=== PATIENT | female | born 1975 | race Caucasian/White ===

== ENCOUNTER → 2024-04-21 09:47 | Outpatient (BNVA) | payer OTHER, SELFPAY | PROVIDERS: PCP Family Medicine; Visit Provider Family Medicine | DX: Z00.00 Encounter for general adult medical examination without abnormal findings (principal); F41.8 Other specified anxiety disorders; J45.909 Unspecified asthma, uncomplicated; G47.9 Sleep disorder, unspecified; E78.5 Hyperlipidemia, unspecified; Z85.3 Personal history of malignant neoplasm of breast | CPT/HCPCS: 96127 ==

== ENCOUNTER 2024-05-10 09:11 | Outpatient (REF) | payer OTHER, SELFPAY ==
--- OUTSIDE RECORDS SUMMARY | 2024-05-10 09:51 | XMS_ITS | Clinical Summary ---
Author Organization [facility] Address [address] [place] [address] Care Team Providers Care Line Patroller Name Role Phone Nely Mccloud MD Primary Care Provider [phone] [phone] Allergies Active Allergy Reactions Criticality Noted Date Comments Clarithromycin 07/29/2023 Neomycin 07/29/2023 Medications Medication Sig Dispensed Refills Start Date End Date Status albuterol 108 (90 Base) MCG/ACT inhaler INHALE 2 PUFFS INTO THE LUNGS 4 TIMES DAILY NEEDED FOR COUGH, WHEEZING OR SHORTNESS OF BREATH. 0 07/07/2023 Active Arnuity Ellipta 100 MCG/ACT AEPB TAKE 1 PUFF BY MOUTH EVERY DAY 0 04/21/2023 Active tamoxifen (NOLVADEX) 20 MG tablet Take 1 tablet (20 mg total) by mouth daily 90 tablet 0 10/28/2023 Active Active Problems Problem Noted Date Diagnosed Date Malignant neoplasm of overla pping sites of left breast in female, estrogen receptor positive 07/29/2023 Family History Medical History Relation Name Comments Cancer Mother BREAST Relation Name Status Comments Mother Social History Tobacco Use Types Packs/Day Years Used Date Smoking Tobacco: Former Cigarettes Q uit: 10/22/2011 Smokeless Tobacco: Never Alcohol Use Standard Drinks/Week Comments Yes 0 (1 standard drink = 0.6 oz pur e alcohol) SOCIALLY Sex and Gender Information Value Date Recorded Sex Assigned at Not on file Gender Identity Not on file Sexual Orientation Not on file Job Start Date Occupation Industry Not on file Not on file Not on file Last Filed Vital Signs Vital Sign Reading Time Taken Comments Blood Pressure 128/70 10/28/2023 9:08 AM EDT Pulse 67 10/28/2023 9:08 AM EDT Temperature 36.5 ??C (97.7 ??F) 10/28/2023 9:08 AM ED T Respiratory Rate - - Oxygen Saturation 100% 10/28/2023 9:08 AM EDT Inhaled Oxygen Concentration - - Weight 78.6 kg (173 lb 3.2 oz) 10/28/2023 9:08 A M EDT Height - - Body Mass Index - - Plan of Treatment Health Maintenance Due Date Last Done Comments Hepatitis B Vaccines (1 of 3 - 3-dose series) 1975 Hepatitis C Screening 1975 Pneumococcal Vaccine (1 of 2 - PCV) 12/21/1981 Depression Screening 1987 Preventative Health Evaluation 12/21/1993 DTap / Tdap / Td (1 - Tdap) 12/21/1994 Cervical Cancer Screening (Pap Smear) 12/21/1996 Colon Cancer Screening (Colonoscopy) 12/21/2020 COVID-19 Vaccine (2023-2 5 season) 2023 03/21/2021, 08/06/2020, 07/16/2020 Influenza Vaccine (#1) 2023 RSV Ped < 20 months Aged Out No longe r eligible based on patient's age to complete this topic Care Teams Line Patroller Relationship Specialty Start Date End Date Nely Mccloud MD [address] [place] [id number] PCP - General Internal Medicine 07/29/23
--- OUTSIDE RECORDS SUMMARY | 2024-05-10 09:51 | XMS_ITS | Encounter Summary ---
Author Organization [facility] Address [address] [place] [address] Care Team Providers Care Cabinet Abrasive Sandblaster Name Role Phone Nely Mccloud MD Primary Care Provider [phone] [phone] Reason for Visit * Reason Onset Date Comments Referral 04/13/2024 Encounter Details Date Type Department Care Team (Late st Contact Info) Description 04/13/2024 Telephone [facility] Hematology Oncology [address] [place] [address] Alem Vargas MD [address] [place] [phone] Referral Social History Tobacco Use Types Packs/Day Years Used Date Smoking Tobacco: Former Cigarettes Q uit: 10/22/2011 Smokeless Tobacco: Never Alcohol Use Standard Drinks/Week Comments Yes 0 (1 standard drink = 0.6 oz pur e alcohol) Comments Unknown Sex and Gender Information Value Date Recorded Sex Assigned at Not on file Legal Sex Female 3:51 PM EST Gender Identity Not on file Sexual Orientation Not on file documented as of this encounter Progress Notes * Iva Kline - 04/13/2024 9:42 AM EST APPT WITH [facility]. 04/20/24 10AM. PATIENT NOTIFIED. documented in this encounter Plan of Treatment Upcoming Encounters Date Type Department Care Team (Late st Contact Info) Description 06/09/2024 1:30 PM EDT Appointment Radiology Department - [address] [address] 06/14/2024 8:20 AM EDT [facility] [place] [address] [facility] [address] [place] [phone] Oswaldo Treviño MD 271 [facility] [address] [place] [address] 09/30/2024 9:30 AM EDT Office Visit [facility] Hematology Oncology [address] [place] [phone] Shashi-Alem Ramírez MD [address] [place] [phone] documented as of this encounter Visit Diagnoses Not on filedocumented in this encounter Care Teams Cabinet Abrasive Sandblaster Relationship Specialty Start Date End Date Nely Mccloud MD [address] [place] [id number] PCP - General 04/29/22 04/13/24 documented as of this encounter
--- OUTSIDE RECORDS SUMMARY | 2024-05-10 09:51 | XMS_ITS | Clinical Summary ---
Author Organization [facility] Address [address] [place] [address] Phone Care Team Providers Care Jewel Cupping Machine Operator Name Role Phone Unavailable Primary Care Provider Unavailabl e Allergies Active Allergy Reactions Criticality Noted Date Comments Clarithromycin Nausea And Vomiting 04/28/2018 Neomycin 04/28/2018 Other Reaction(s): Rash/Dermatitis Makes her skin blister Medications albuterol HFA (PROAIR HFA ; PROVENTIL HFA ; VENTOLIN HFA) 90 mcg/actuation inhaler Inhale 2 Puffs into the lungs 4 times daily as needed for Cough, Wheezing or Shortness of Breath. Active tamoxifen (NOLVADEX) 20 mg chemo tablet Take 1 tablet (20 mg total) by mouth 1 (one) time each day 30 tablet 3 01/25/20 24 Active Arnuity Ellipta 100 mcg/actuation blister with device inhaler INHALE 1 PUFF BY MOUTH EVERY DAY 90 each 04/14/19 25 Active fluticasone furoate (Arnuity Ellipta) 100 mcg/actuation blister with device inhaler Inhale 1 puff by mouth 1 (one) time each day. 04/21/19 24 025 Discontinued Active Problems Problem Noted Date Diagnosed Date Malignant neoplasm of lower- outer quadrant of left breast of female, estrogen receptor positive 03/30/2024 Mild intermittent asthma without complication Lumbar disc disease with radiculopathy Asthma 04/28/2018 Overweight (BMI 25.0-29.9) 04/28/2018 Encounters Date Type Department Care Team Description 04/13/2024 Telephone [facility] Hematology Oncology [address] [place] [address] Alem Vargas MD Referral 04/01/2024 11:30 AM EST Office Visit [facility] Hematology Oncology [address] [place] [address] Alem Vargas MD Malignant neoplasm of lower-outer quadrant of left breast of female, estrogen receptor positive (CMS/HCC) (Primary Dx); Dysplastic nevus 03/28/2024 Telephone [facility] Hematology Oncology [address] [place] [address] Alem Vargas MD from Last 3 Months Surgical History Surgery Date Site/Laterality Comments TUBAL LIGATION PROCEDURE:TUBAL LIGATION;COMMENT:REVERSED 2011 Medical History Medical History Date Comments Breast cancer (CMS/HCC) DX:Breas t cancer (HCC) Asthma DX:Asthma Family History Medical History Relation Name Comments Cancer Mother BREAST Relation Name Status Comments Mother Social History Tobacco Use Types Packs/Day Years Used Date Smoking Tobacco: Former Cigarettes Q uit: 10/22/2011 Smokeless Tobacco: Never Tobacco Cessation:Counseling Given: Not Answered Alcohol Use Standard Drinks/Week Comments Yes 0 (1 standard drink = 0.6 oz pur e alcohol) Comments Unknown Sex and Gender Information Value Date Recorded Sex Assigned at Not on file Legal Sex Female 3:51 PM EST Gender Identity Not on file Sexual Orientation Not on file Obstetrics History Last Filed Vital Signs Vital Sign Reading Time Taken Comments Blood Pressure 128/73 04/01/2024 11:36 AM EST Pulse 68 04/01/2024 11:36 AM EST Temperature 37 ??C (98.6 ??F) 04/01/2024 11: 36 AM EST Respiratory Rate - - Oxygen Saturation 100% 04/01/2024 11: 36 AM EST Inhaled Oxygen Concentration - - Weight 76.6 kg (168 lb 12.8 oz) 025 11:36 AM EST Height 162.6 cm (5' 4 ) 01/15/2023 1:56 PM EDT Body Mass Index 28.97 01/15/2023 1:56 PM EDT Plan of Treatment Upcoming Encounters Date Type Department Care Team (Late st Contact Info) Description 06/09/2024 1:30 PM EDT Appointment Radiology Department - [address] [address] 06/14/2024 8:20 AM EDT Office Visit [facility] [place] [facility] [place] [address] [facility] [address] [place] [phone] Oswaldo Treviño MD 271 [facility] [address] [place], [place] [phone] 09/30/2024 9:30 AM EDT Office Visit [facility] Hematology Oncology [address] [place] [address] Shashi-Alem Ramírez MD [address] [place] [address] Health Maintenance Due Date Last Done Comments DTaP,Tdap,and Td Vaccines (1 - Tdap) 12/21/1994 Hepatitis B Vaccines (1 of 3 - 19+ 3-dose series) 12/21/1994 Pneumococcal Vaccine: Pediatrics (0 to 5 Years) and At-Risk Patients (6 to 64 Years) (1 of 2 - PCV) 12/21/1994 Colorectal Cancer Screening: Colonoscopy 03/01/2022 Depression Screening 03/01/2022 HIV Screening 03/01/2022 Hepatitis C Screening 03/01/2022 Social Influencers of Health Screening 03/01/2022 COVID-19 Vaccine ( season) 2023 04/11/2022, 03/21/2021, 08/06/2020, Additional history exists Influenza Vaccine (#1) 2023 Breast Cancer Screening 09/02/2025 09/03/19 24, 09/03/2023, 06/01/2023, Additional history exists Cervical Cancer Screening: HPV 06/10/2026 06/10/2021 Cholesterol Screening (Lipid Panel) 07/05/2027 07/04/2022 HIB Vaccines Aged Out No longer eligi ble based on patient's age to complete this topic HPV Vaccines Aged Out No longer eligi ble based on patient's age to complete this topic Hepatitis A Vaccines Aged Out No long er eligible based on patient's age to complete this topic IPV Vaccines Aged Out No longer eligi ble based on patient's age to complete this topic MMR Vaccines Aged Out No longer eligi ble based on patient's age to complete this topic Meningococcal ACWY Vaccine Aged Out N o longer eligible based on patient's age to complete this topic Meningococcal B Vacine Aged Out No lo nger eligible based on patient's age to complete this topic RSV Immunization Patients Under 20 months Aged Out No longer eligible based on patient's age to complete this topic Varicella Vaccines Aged Out No longer eligible based on patient's age to complete this topic Procedures Procedure Name Priority Date/Time Associated Diagnosis Comments DX MAMMO INCL CAD UNI Routine 09/03/2023 2:31 PM EDT Other abnormal and inconclusive findings on diagnostic imaging of breast LIPID PANEL Routine 07/04/2022 HM HPV Routine 06/10/2021 from Last 3 Months or Most Recently Relevant to Health Maintenance Results * DX MAMMO INCL CAD UNI (09/03/2023 2:31 PM EDT) Anatomical Region Laterality Modality Mammography 09/02/2023 12:1 9 PM EDT Narrative 09/14/2023 7:39 PM EDT PROCEDURE: MRI guided left breast biopsy HISTORY: Personal history of left breast cancer status post partial mastectomy and left axillary sentinel node biopsy. Pathology demonstrated multiple foci of invasive ductal carcinoma and extensive DCIS. Prior MRI demonstrated area of enhancement spanning from 12:00 to 2:00 ??and both areas were recommended for biopsy as there was an original plan for reexcision. Today, biopsy of curvilinear nonmass enhancement situated more medially was performed. COMPARISON: MRI breast from 08/18/2023 Technique: The time-out, which included patient's full name, date of , description of the expected procedure and procedure site, was performed immediately before the procedure to confirm patient's identity. Informed consent was obtained. Using a dedicated breast coil with the patient in the prone position, axial fat-suppressed T1-weighted images were obtained through the breast. Axial images were then obtained after the administration of 20 cc of Dotarem intravenous contrast at 15 seconds and 90 seconds. Subtractions of the axial T1 sequences were performed. FINDINGS: MRI guided biopsy was performed for the concerning 12:00 area of nonmass enhancement which was described in the previous report. A lateral to medial approach was used. The skin was cleaned with Betadine and alcohol. Cutaneous and deeper subcutaneous anesthesia was achieved using 1% lidocaine and 1% lidocaine with epinephrine, respectively. A 3 mm incision was made using a scalpel. An 9 gauge vacuum assisted biopsy needle was inserted into the targeted area and its accuracy was confirmed with MRI images. Four core biopsy specimens were obtained. Biopsy marker clip was deployed at the biopsy site. Following the procedure, the biopsy site was compressed and cleaned. Steri- Strips and sterile gauze were applied and the patient was given post-biopsy instructions. The patient tolerated the procedure well and left the department in good condition. Postbiopsy mammogram demonstrates the clip. The obtained core specimens were sent for pathologic analysis. IMPRESSION: IMPRESSION: Successful MRI guided biopsy of the more medial area of nonmass enhancement at 12:00 containing type III kinetics. Biopsy markers were not available as they were significantly back ordered. Multiple surrounding institutions were called to obtain markers but unable to obtain additional marker. Patient will need to return for the most anterior aspect biopsy recommended on prior examination depending on pathology results and depending on whether reexcision is still the surgical plan. The plan to do only one biopsy was discussed with Dr. Treviño prior to beginning the biopsy SURGICAL PATHOLOGY REPORT DIAGNOSIS: DCIS Pathology findings are concordant with imaging findings. BIRADS category 6 - Known Biopsy-Proven Malignancy RECOMMENDATION: Consultation with breast surgeon is recommended. Findings were discussed with Dr. Treviño on 09/10/2023 at 10:25 AM, the plan at time of discussion was mastectomy, therefore an additional MRI biopsy was not needed. Patient aware of results. Procedure Note Edith Ivan MD - 01/06/2024 PROCEDURE: MRI guided left breast biopsy HISTORY: Personal history of left breast cancer status post partialmastectomy and left axillary sentinel node biopsy. Pathology demonstrated multiple foci ofinvasive ductal carcinoma and extensive DCIS. Prior MRI demonstrated area of enhancementspanning from 12:00 to 2:00 and both areas were recommended for biopsy as there was an originalplan for reexcision. Today, biopsy of curvilinear nonmass enhancement situated more mediallywas performed. COMPARISON: MRI breast from 08/18/2023 Technique: The time-out, which included patient's full name, date of ,description of the expected procedure and procedure site, was performed immediately before theprocedure to confirm patient's identity. Informed consent was obtained. Using a dedicated breast coil with the patient in the prone position,axial fat-suppressed T1-weighted images were obtained through the breast. Axial images werethen obtained after the administration of 20 cc of Dotarem intravenous contrast at 15 seconds and90 seconds. Subtractions of the axial T1 sequences were performed. FINDINGS: MRI guided biopsy was performed for the concerning 12:00 area of nonmassenhancement which was described in the previous report. A lateral to medial approach was used.The skin was cleaned with Betadine and alcohol. Cutaneous and deeper subcutaneous anesthesiawas achieved using 1% lidocaine and 1% lidocaine with epinephrine, respectively. A 3 mm incisionwas made using a scalpel. An 9 gauge vacuum assisted biopsy needle was inserted into thetargeted area and its accuracy was confirmed with MRI images. Four core biopsy specimens wereobtained. Biopsy marker clip was deployed at the biopsy site. Following the procedure, the biopsy site was compressed and cleaned.Steri-Strips and sterile gauze were applied and the patient was given post-biopsy instructions. The patient tolerated the procedure well and left the department in goodcondition. Postbiopsy mammogram demonstrates the clip. The obtained core specimens were sent for pathologic analysis. IMPRESSION: IMPRESSION: Successful MRI guided biopsy of the more medial area of nonmassenhancement at 12:00 containing type III kinetics. Biopsy markers were not available as they were significantly back ordered.Multiple surrounding institutions were called to obtain markers but unable to obtainadditional marker. Patient will need to return for the most anterior aspect biopsy recommended onprior examination depending on pathology results and depending on whether reexcision isstill the surgical plan. The plan to do only one biopsy was discussed with Dr. Treviño prior tobeginning the biopsy SURGICAL PATHOLOGY REPORT DIAGNOSIS: DCIS Pathology findings are concordant with imaging findings. BIRADS category 6 - Known Biopsy-Proven Malignancy RECOMMENDATION: Consultation with breast surgeon is recommended. Findings were discussed with Dr. Treviño on 09/10/2023 at 10:25 AM, the planat time of discussion was mastectomy, therefore an additional MRI biopsy was not needed.Patient aware of results. Oswaldo Treviño MD IMG BI PROCEDURES Final Result * (ABNORMAL) Lipid panel (07/04/2022) LDL/HDL Ratio 3 0 - 4 Triglycerides 58 0 - 150 mg/dL Cholesterol 206(A) 0 - 200 mg/dL HDL 69 >=40 mg/dL LDL Cholesterol 126(A) 0 - 100 mg/dL Blood Venous blood specimen / Unknown Historical Provider LAB BLOOD ORDERABLES Shantel l Result * Cervical Cancer Screening: HPV (06/10/2021) Pathologist [facility] Cervical Cancer Screening: HPV abstracted, negative Historical Provider HEALTH MAINTENANCE Final Result from Last 3 Months or Most Recently Relevant to Health Maintenance Insurance [facility] [place] [id number]
--- OUTSIDE RECORDS SUMMARY | 2024-05-10 09:51 | XMS_ITS | Encounter Summary ---
Author Organization [facility] Address [address] [place] [address] Care Team Providers Care Baton Twirler Name Role Phone Nely Mccloud MD Primary Care Provider [phone] [phone] Encounter Details Date Type Department Care Team Description 10/15/2023 Social Work [facility] Oncology Services [address] [place] [address] Tati Becerril, [facility] Social History Tobacco Use Types Packs/Day Years [...] file Not on file Not on file documented as of this encounter Plan of Treatment Not on file documented as of this encounter Visit Diagnoses Not on filedocumented in this encounter Care Teams Baton Twirler Relationship Specialty Start Date End Date Nely Mccloud MD [address] [place] [id number] PCP - General Internal Medicine 07/29/23 documented as of this encounter
--- OUTSIDE RECORDS SUMMARY | 2024-05-10 09:51 | XMS_ITS | Encounter Summary ---
Author Organization [facility] Address [address] [place] [address] Care Team Providers Care Property Maintenance Technician Name Role Phone Nely Mccloud MD Primary Care Provider [phone] Encounter Details Date Type Department Care Team Description 09/18/2023 Social Work [facility] Oncology Services [address] [place] [address] Tati Becerril, [facility] Social History Tobacco Use Types Packs/Day Years [...] on filedocumented in this encounter Care Teams Property Maintenance Technician Relationship Specialty Start Date End Date Nely Mccloud MD [address] [place] [id number] PCP - General Internal Medicine 07/29/23 documented as of this encounter
[2024-05-10 10:59] LABS: MANUAL DIFF FLAG NO
[2024-05-10 11:00] LABS: Appearance Urine Clear; Color Urine Yellow; Glucose Urine UA Negative (Negative); Leukocyte Esterase Urine Trace (Negative); Nitrite Urine Negative (Negative); PH 6.5 (5.0-9.0); Specific Gravity - Urine 1.015 (1.005-1.025); UMIC TRIGGER UA YES; Urine Blood Negative (Negative); Urine Ketones Negative (Negative); Urine Protein Negative (Neg-Trace)
[2024-05-10 11:05] LABS: Bacteria Urine None Seen (None Seen); Hyaline Casts Urine 0-2 /LPF (0-2); RBC Urine 0-2 /HPF (0-2); Squamous Epithelial Cell Urine 0-2 /HPF (0-2); WBC Urine 0-5 /HPF (0-5)
[2024-05-10 11:15] LABS: Basophils Percent Auto 0.3 % (0-2); Eosinophils Absolute Auto 0.2 X10*3/uL (0.0-0.4); Eosinophils Percent Auto 3.1 % (0-4); Hematocrit 38.3 % (37.0-47.0); Hemoglobin 12.4 g/dl (12.0-16.0); Imm Gran Abs Auto 0.01 X10*3/uL (0.00-0.03); Imm Gran Pct Auto 0.2 % (0.0-0.4); Lymphocytes Absolute Auto 1.6 X10*3/uL (1.2-4.9); Lymphocytes Percent Auto 27.2 % (20-40); Mean Corpuscular HGB Conc 32.4 g/dl (31.0-35.0); Mean Corpuscular Hemoglobin 29.4 pg (27.0-33.0); Mean Corpuscular Volume 90.8 fL (80.0-98.0); Mean Platelet Volume 9.7 fL (9.4-12.3); Monocytes Absolute Auto 0.6 X10*3/uL (0.1-1.2); Monocytes Percent Auto 10.4 % (2-11); Neutrophils Absolute Auto 3.4 x10*3/uL (2.0-8.3); Neutrophils Percent Auto 58.8 % (45-73); Platelet Count 336 X10*3/uL (160-400); Red Blood Count 4.22 X10*6/uL (4.20-5.50); Red Cell Distribution Width 14.2 % (11.0-16.0); White Blood Count 5.8 X10*3/uL (4.8-10.8)
[2024-05-10 12:08] LABS: Creatinine Urine 51.67 mg/dL; Microalbumin Urine < 5.0 mg/L
[2024-05-10 12:16] LABS: Alanine Aminotransferase 17 U/L (0-31); Albumin Level 3.9 g/dL (3.5-5.0); Alkaline Phosphatase 34 U/L (39-117); Anion Gap 10 (12-20); Aspartate Amino Transferase 21 U/L (5-31); Bilirubin Total 0.3 mg/dL (0.0-1.0); Blood Urea Nitrogen 8 mg/dL (9-16); Calcium 8.9 mg/dL (8.4-10.2); Carbon Dioxide 25 mmol/L (22-29); Chloride 111 mmol/L (96-108); Cholesterol 169 mg/dL (<200); Estimated Glomerular Filt Rate > 60; Glucose Fasting 96 mg/dL (60-99); HDL Cholesterol 64 mg/dL (>40); LDL Cholesterol Calculated 94 mg/dL (<100); Potassium 3.9 mmol/L (3.3-5.1); Sodium 142 mmol/L (135-145); TSH reflex Free T4 2.71 uIU/mL (0.32-4.0); Total Protein 7.2 g/dL (6.5-8.0); Triglycerides 59 mg/dL (<150); Vitamin D 25-OH Total 51.1 ng/mL (>30)
== END 2024-05-10 09:12 | disposition home or self-care (01) ==
LOC: HO.WFDLDS 09:11
PROVIDERS: Visit Provider Family Medicine
DX: Z00.00 Encounter for general adult medical examination without abnormal findings (principal); I10 Essential (primary) hypertension; E55.9 Vitamin D deficiency, unspecified
CPT/HCPCS: 36415; 80053; 80061; 81001; 81003; 82043; 82306; 82570; 84443; 85025

== ENCOUNTER 2024-05-17 14:49 | Outpatient (AMB) | payer OTHER, SELFPAY ==
--- NOTE | 2024-05-17 14:45 | A.OFFPC_ITS ---
Intake Visit Reasons: f/u CPE-labs via telemedicine Intake Note: lab review Allergies clarithromycin [From Biaxin] Allergy (Intermediate, Verified 05/17/24 14:46) Nausea neomycin Allergy (Intermediate, Verified 05/17/24 14:46) Rash Tobacco use date assessed: 04/21/24 Dental Screening Dental Screen Date: 04/21/24 HPI f/u CPE-labs via telemedicine HPI Details 48 y/o female presents to f/u CPE-labs v ia telemedicine. Labs drawn 05/10/24. Reviewed labs with pt. Triglycerides 59. TC 169. LDL 94. HDL 64. Her labs were fine. Had mentioned difficulty sleeping. 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 Current occupational exposures/hazards: No Cognitive needs: No Hearing needs: No Vision needs: No Questionnaire Thrive Questionnaire Date Thrive assessed: 04/14/24 I am a: Patient What is your living situation today?: I have a steady place to live Within the past 12 months, did the food you bought not last and you didn't have the money to get more?: Never true Within the past 12 months, did you worry whether your food would run out before you got money to buy more?: Never true Do you have trouble paying for medicines?: No Do you have trouble getting transportation to medical appointments?: No Do you have trouble paying your heating and electricity bill?: No Do you have trouble taking care of your child, family member or friend?: No Do you have trouble with day-to-day activities such as bathing, preparing meals, shopping, managing finances, etc.?: No Are you currently unemployed and looking for a job?: No Are you interested in more education?: No Please select the resources that you would like help with: None Currently or been in a relationship where the following occur: No concerns reported THRIVE Score: 0 KEITH-7 AMB Questionnaire KEITH-7 Date KEITH - 7 assessed: 04/21/24 Source: Developed by Drs. Jarred Blue, Elizabeth Dejesus, Mati Ferrell and colleagues, with an educational collin from [employer]. Review of Systems Const Denies chills, Denies fatigue, Denies fever(s), Denies headache(s) and Denies weakness ENT Denies dizziness and Denies headache(s) Card Denies dyspnea Resp Denies cough, Denies dyspnea, Denies wheezing and Denies other (shortness of breath) Musc Denies numbness and Denies tingling Neuro Denies dizziness, Denies headache(s), Denies numbness, Denies tingling and Denies weakness Psych Denies anxiety and Denies depression Endo Denies fatigue Aller/Immun Denies wheezing Physical exam (Primary Care) Tobacco/Smoking Status: Tobacco use Status Tobacco use date assessed 04/21/24 05/17/24 14:47 Patient Tobacco Use Status Never used Tobacco 05/17/24 14:47 e-Cigarette/Vaping Use Never Used 05/17/24 14:47 Thrive Assessment: Date of Thrive Assessment Date Thrive assessed 04/14/24 05/17/24 14:47 Currently or been in a relationship where the following occur: No concerns reported Telehealth Telehealth Telehealth Platform: Telephone Location of provider rendering services: practice address Location of patient: address on file Patient Identification confirmed using: Name, : Yes Telehealth method: voice only Patient verbally consented to treatment: Yes Patient verbally consented to billing insurance company: Yes Patient informed of any privacy concerns related to visit: Yes Minutes spent on Phone/Video with Pt.: 5 Coding Level of Care Code Tele Est Pt Level 2 (96329) Diagnoses HLD (hyperlipidemia) E78.5 Difficulty sleeping G47.9 Assessment & Plan Assessment & Plan (1) HLD (hyperlipidemia): Code(s): E78.5 - Hyperlipidemia, unspecified Category: Medical Plan: Pa tient?had?noted?history?of?elevated?lipids?however?lipids?are?all?within?normal? limits Continue?diet?low?in?saturated?fats?and?cholesterol (2) Difficulty sleeping: Code(s): G47.9 - Sleep disorder, unspecified Category: Medical Plan: Labs?within?normal?limits?and?do?not?explain?difficulty?sleeping. Had?given?her?a?book?which?she?can?read?and?had suggested she?follow?sleep?hygiene?recommendations She?can?call?or?return?to?office?if?worsening?or?not?improving. Orders: Orders Lipid Panel Today Z00.00 - Encounter for general adult medical examination without abnormal findings Microalbumin, Random (w Creat) Today I10 - Essential (primary) hypertension TSH reflex Free T4 Today Z00.00 - Encounter for general adult medical examination without abnormal findings UA and rflx microscopic Today Z00.00 - Encounter for general adult medical examination without abnormal findings Comprehensive Carmine. Panel Fast Today Z00.00 - Encounter for general adult medical examination without abnormal findings Complete Blood Count Auto Diff Today Z00.00 - Encounter for general adult medical examination without abnormal findings Vitamin D 25-OH Total Today E55.9 - Vitamin D deficiency, unspecified
--- OUTSIDE RECORDS SUMMARY | 2024-05-17 18:35 | XMS_ITS | Clinical Summary ---
Author Organization [facility] Address [address] [place] [address] Care Team Providers Care Non Destructive Testing Specialist Name Role Phone Nely Mccloud MD Primary Care Provider [phone] Allergies Active Allergy Reactions Criticality Noted Date [...] age to complete this topic Care Teams Non Destructive Testing Specialist Relationship Specialty Start Date End Date Nely Mccloud MD [address] [place] [id number] PCP - General Internal Medicine 07/29/23
--- OUTSIDE RECORDS SUMMARY | 2024-05-17 18:35 | XMS_ITS | Clinical Summary ---
Author Organization [facility] Address [address] [place] [address] Phone Care Team Providers Care Educational Audiologist Name Role Phone Unavailable Primary Care Provider [...] (one) time each day 30 tablet 3 4 Active Arnuity Ellipta 100 mcg/actuation blister with device inhaler INHALE 1 PUFF BY MOUTH EVERY DAY 90 each 5 Active Active Problems Problem Noted Date Diagnosed Date Malignant neoplasm of lower- outer quadrant of left breast of female, estrogen receptor positive 03/30/2024 Mild intermittent asthma without complication Lumbar disc disease with radiculopathy 1 Asthma 04/28/2018 Overweight (BMI 25.0-29.9) 04/28/2018 Encounters Date Type Department Care Team Description 04/13/2024 Telephone [facility] Hematology Oncology [address] [place] [address] Alem Vargas MD Referral 04/01/2024 11:30 AM EST Office Visit [facility] Hematology Oncology [address] [place] [address] Alem Vargas MD Malignant neoplasm of lower-outer quadrant of left breast of female, estrogen receptor positive (CMS/HCC) (Primary Dx); Dysplastic nevus 03/28/2024 Telephone [facility] Hematology Oncology [address] [place] [address] Alem Vargas MD from Last [...] 06/09/2024 1:30 PM EDT Appointment Radiology Department [address] [phone] 06/14/2024 8:20 AM EDT Office Visit [facility] [address] [facility] [address] [place] [address] Oswaldo Treviño MD [address] [facility] [address] [place] [address] 09/30/2024 9:30 AM EDT Office Visit [facility] Hematology Oncology [address] [place] [address] Alem Vargas MD [address] [place] [phone] Health Maintenance Due Date Last Done Comments [...] mg/dL Blood Venous blood specimen / Unknown us Historical Provider LAB BLOOD ORDERABLES Shantel l Result * Cervical Cancer Screening: HPV (06/10/2021) Pathologist [facility] Cervical Cancer Screening: HPV abstracted, negative us Historical Provider HEALTH MAINTENANCE Final Result from Last 3 Months or Most Recently Relevant to Health Maintenance Insurance [facility] [place] [id number]
--- OUTSIDE RECORDS SUMMARY | 2024-05-17 18:35 | XMS_ITS | Encounter Summary ---
Author Organization [facility] Address [address] [place] [address] Care Team Providers Care Youth Services Librarian Name Role Phone Nely Mccloud MD Primary Care Provider [phone] Encounter Details Date Type Department Care Team Description 09/18/2023 Social Work [facility] Oncology Services [address] [place] [address] Tati Becerril, [facility] Social History Tobacco Use Types Packs/Day Years [...] on filedocumented in this encounter Care Teams Youth Services Librarian Relationship Specialty Start Date End Date Nely Mccloud MD [address] [place] [id number] PCP - General Internal Medicine 07/29/23 documented as of this encounter
--- OUTSIDE RECORDS SUMMARY | 2024-05-17 18:35 | XMS_ITS | Encounter Summary ---
Author Organization [facility] Address [address] [place] [address] Care Team Providers Care Tape Edge Machine Operator Name Role Phone Nely Mccloud MD Primary Care Provider [phone] Encounter Details Date Type Department Care Team Description 10/15/2023 Social Work [facility] Oncology Services [address] [place] [address] Tati Becerril, [facility] [place] Social History Tobacco Use Types Packs/Day Years [...] on filedocumented in this encounter Care Teams Tape Edge Machine Operator Relationship Specialty Start Date End Date Nely Mccloud MD [address] [place] [id number] PCP - General Internal Medicine 07/29/23 documented as of this encounter
== END 2024-05-17 17:05 | disposition home or self-care (01) ==
LOC: HO.HMCFM 14:49
PROVIDERS: PCP Family Medicine; Visit Provider Family Medicine
DX: E78.5 Hyperlipidemia, unspecified (principal); G47.9 Sleep disorder, unspecified

== ENCOUNTER 2024-06-29 14:00 | Outpatient (AMB) | payer OTHER, SELFPAY ==
[2024-06-29 14:11] VITALS: BP 106/62; BMI 28.8
--- NOTE | 2024-06-29 14:11 | A.OFFVIS_ITS ---
Vital Signs 06/29/24 14:11 Height 5 ft 4 in Weight 168 lb BMI 28.8 BP 106/62 Intake Visit Reasons: New Patient Annual Naval Designer Required: No Naval Designer Services: Naval Designer Present Information Interpreted: clinical only Visual Merchandising Director: Visual Merchandising Director Present Allergies clarithromycin [From Biaxin] Allergy (Intermediate, Verified 06/29/24 14:12) Nausea neomycin Allergy (Intermediate, Verified 06/29/24 14:12) Rash Medication List - Last Reconciled 06/29/24 by Rajni Diallo CNM albuterol sulfate 90 mcg/actuation inhalation fluticasone furoate 100 mcg/actuation (Arnuity Ellipta) 1 inh inhalation Q24H 30 days tamoxifen 20 mg PO DAILY Is last menstrual period known: Yes Last menstrual period: 06/21/24 HPI HPI New Patient 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 She has recently gone through a diagnosis and treatment of breast cancer it was detected early but it was the kind that was not responsive to chemo so she had a total mastectomy because something was left in the margins when they 1st did a lumpectomy. She also ended up with breast reconstruction surgery and also a lift done the other side so the her 2 breasts would match each other. She is getting back to walking and be physically active but she does notice ot her changes because there was an implant under her chest wall so effects how the muscles function. She is and in a monogamous relationship they had tried to conceive in her 30s and it never happened and did not works she is not worried about getting at this age but she knows it would not be great she is still getting regular periods she is starting to experience some vaginal dryness and other symptoms of perimenopause. 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 per patient) History of abnormal pap smear: No Date of Mammogram: 05/24/24 (negative (Liliane )) History of abnormal mammogram: Yes Physical Exam Vital Signs: Last Vital Signs BP 106/62 06/29/24 14:11 BMI result Body Mass Index 28.8 Const General: healthy appearing, comfortable, no acute distress, well developed and alert Nutritional Appearance: average body habitus Orientation/consciousness: patient oriented x3 Limitations: no limitations HEENT Head: Yes normocephalic Neck Neck: Yes normal visual inspection Thyroid: Thyroid normal Chest Other: Patient has had breast lift on the right side and has scars from that and she has had a complete mastectomy and breast implant and breast reconstruction on the left side with scars No palpable masses no nipple dimpling but there is scarring from the surgeries. Resp Effort & Inspection: normal respiratory effort GI Inspection: Yes normal to inspection, No Abdominal wall edema and No distended Palpation (GI): Soft to palpation and nontender General: Yes bladder normal to palpation External Female Exam: normal external appearance and normal appearance of the urethra Speculum Exam - Vagina: normal appearance of the vagina, normal palpation and normal vaginal discharge Speculum Exam - Cervix: normal appearance of the cervix, normal palpation and nontender Bimanual exam- vagina & uterus: normal bimanual exam, normal palpation, uterine size normal, bladder normal to palpation, consistency normal, normal palpation, uterine mobility normal, uterine shape normal, No Cervical tenderness present, non-tender and no cervical motion tenderness Bimanual Exam- Adnexa, other: normal adnexae, no masses, normal and No adnexal tenderness Neuro General: patient oriented x3 Assessment & Plan Assessment & Plan (1) History of left breast cancer: Code(s): Z85.3 - Personal history of malignant neoplasm of breast Category: Medical (2) Screening for cervical cancer: Code(s): Z12.4 - Encounter for screening for malignant neoplasm of cervix Category: Medical (3) Well woman exam with routine gynecological exam: Code(s): Z01.419 - Encounter for gynecological examination (general) (routine) without abnormal findings Category: Medical (4) Dysmenorrhea, unspecified: Comment: She takes Tylenol and ibuprofen p.r.n. discussed heat packs as well. Code(s): N94.6 - Dysmenorrhea, unspecified Category: Medical (5) Perimenopause: Code(s): N95.1 - Menopausal and female climacteric states Category: Medical Plan -----Discussed in this visit the following: healthy balanced diet, regular and consistent exercise, getting recommended health screens, doing the best she can for her particular health concerns, kegel exercises, pap smear screening and followup recommendations, mammography screening and SBE, normal changes in cycles in her life stage--- Discussed her experience breast cancer and the surgeries and recovery and what she is doing for self-care. with Discussed braxton menopausal changes to expect she is starting to experience some vaginal dryness. Discussed the range of experiences. Pap smear done today patient declined any testing for STIs or any other infections as not necessary Coding Level of Care Code New Pt Prev Care 40-64y(83179) Diagnoses History of left breast cancer Z85.3 Screening for cervical cancer Z12.4 Well woman exam with routine gynecological exam Z01.419 Dysmenorrhea, unspecified N94.6 Perimenopause N95.1
--- OUTSIDE RECORDS SUMMARY | 2024-06-29 16:15 | XMS_ITS | Encounter Summary ---
Author Organization [facility] Address [address] [place] [address] Care Team Providers Care Waste Water Or Water Plant Operator Name Role Phone Nely Mccloud MD Primary Care Provider [phone] Encounter Details Date Type Department Care Team Description 09/18/2023 Social Work [facility] Oncology Services [address] [place] [address] Tati Becerril, [facility] [place] Social History Tobacco Use Types Packs/Day Years [...] on filedocumented in this encounter Care Teams Waste Water Or Water Plant Operator Relationship Specialty Start Date End Date Nely Mccloud MD [address] [place] [id number] PCP - General Internal Medicine 07/29/23 documented as of this encounter
--- OUTSIDE RECORDS SUMMARY | 2024-06-29 16:15 | XMS_ITS | Encounter Summary ---
Author Organization [facility] Address [address] [place] [address] Care Team Providers Care Circus Performer Name Role Phone Nely Mccloud MD Primary Care Provider [phone] Encounter Details Date Type Department Care Team Description 10/15/2023 Social Work [facility] Oncology Services [address] [place] [address] Tati Becerril, [facility] [place] Social History Tobacco Use Types Packs/Day Years [...] on filedocumented in this encounter Care Teams Circus Performer Relationship Specialty Start Date End Date Nely Mccloud MD [address] [place] [id number] PCP - General Internal Medicine 07/29/23 documented as of this encounter
--- OUTSIDE RECORDS SUMMARY | 2024-06-29 16:15 | XMS_ITS | Clinical Summary ---
Author Organization [facility] [address] [place] [address] [place] [phone] Phone Care Team Providers Care Complementary Health Therapists Name Role Phone Preet Mack MD Primary Care Provider [phone]- [phone] Allergies Active Allergy Reactions Criticality Noted Date Comments Clarithromycin Nausea And Vomiting 04/28/2018 Neomycin 04/28/2018 Other Reaction(s): Rash/Dermatitis Makes her skin blister Medications albuterol HFA (PROAIR HFA ; PROVENTIL HFA ; VENTOLIN HFA) 90 mcg/actuation inhaler Inhale 2 Puffs into the lungs 4 times daily as needed for Cough, Wheezing or Shortness of Breath. Active Arnuity Ellipta 100 mcg/actuation blister with device inhaler INHALE 1 PUFF BY MOUTH EVERY DAY 90 each 5 Active tamoxifen (NOLVADEX) 20 mg chemo tablet TAKE 1 TABLET (20 MG TOTAL) BY MOUTH ONE TIME EACH DAY 30 tablet 3 5 Active Active Problems Problem Noted Date Diagnosed Date Malignant neoplasm of lower- outer quadrant of left breast of female, estrogen receptor positive 03/30/2024 Mild intermittent asthma without complication Lumbar disc disease with radiculopathy 1 Asthma 04/28/2018 Overweight (BMI 25.0-29.9) 04/28/2018 Encounters Date Type Department Care Team Description 06/14/2024 8:20 AM EDT [facility] [address] [place] [address] Oswaldo Treviño MD Malignant neoplasm of lower-outer quadrant of left breast of female, estrogen receptor positive (CMS/HCC) (Primary Dx) 06/09/2024 1:18 PM EDT - 06/09/2024 11:59 PM EDT Hospital Encounter Radiology Department - [address] [phone] Personal history of breast cancer Discharge Disposition: Home or Self Care 04/13/2024 Telephone [facility] Hematology Oncology [address] [place] [phone] Alem Cho MD Referral 04/01/2024 11:30 AM EST Office Visit [facility] Hematology Oncology [address] [place] [phone] Alem Cho MD Malignant neoplasm of lower-outer quadrant of left breast of female, estrogen receptor positive (CMS/HCC) (Primary Dx); Dysplastic nevus from Last 3 Months Surgical History Surgery Date Site/Laterality Comments TUBAL LIGATION PROCEDURE:TUBAL LIGATION;COMMENT:REVERSED 2012 MASTOPEXY Right 2023 Medical History Medical History Date Comments Breast cancer DX:Breast cancer (HCC) Asthma DX:Asthma Family History Medical History Relation Name Comments Breast cancer Mother Cancer Mother BREAST Relation Name Status Comments Mother Alive Social History Tobacco Use Types Packs/Day Years Used Date Smoking Tobacco: Former Cigarettes Q uit: 10/22/2011 Smokeless Tobacco: Never Tobacco Cessation:Counseling Given: Not Answered Alcohol Use Standard Drinks/Week Comments Yes 0 (1 standard drink = 0.6 oz pur e alcohol) Comments No Sex and Gender Information Value Date Recorded Sex Assigned at Not on file Legal Sex Female 3:51 PM EST Gender Identity Not on file Sexual Orientation Not on file Obstetrics History Para Term AB IAB SAB Ectopic Multiple Livin g Live Births 0 0 0 0 Last Filed Vital Signs Vital Sign Reading Time Taken Comments Blood Pressure 116/77 06/14/2024 8:23 AM EDT Pulse 72 06/14/2024 8:23 AM EDT Temperature 36.4 ??C (97.6 ??F) 06/14/2024 8:23 AM ED T Respiratory Rate - - Oxygen Saturation 100% 04/01/2024 11:36 AM EST Inhaled Oxygen Concentration - - Weight 76.2 kg (168 lb) 06/14/2024 8:23 AM EDT Height 162.6 cm (5' 4 ) 01/15/2023 1:56 PM EDT Body Mass Index 28.84 01/15/2023 1:56 PM EDT Plan of Treatment Upcoming Encounters Date Type Department Care Team (Late st Contact Info) Description 09/30/2024 9:30 AM EDT Office Visit [facility] Hematology Oncology [address] [place] [address] Alem Vargas MD [address] [place] [phone] 12/08/2024 8:00 AM EDT Office Visit [facility] 271 [facility] [address] [place] [phone] Oswaldo Treviño MD 271 [facility] [address] [place] [address] Health Maintenance Due Date Last Done Comments [...] 03/21/2021, 08/06/2020, Additional history exists Influenza Vaccine (Season Ended) 2024 Breast Cancer Screening 06/09/2026 06/10/19, 09/03/2023, 09/03/2023, Additional history exists Cervical Cancer Screening: HPV [...] age to complete this topic Meningococcal B Vaccine Aged Out No l onger eligible based on patient's age to complete this topic RSV Immunization Patients Under 20 months Aged Out No longer eligible based on patient's age to complete this topic Varicella Vaccines Aged Out No longer eligible based on patient's age to complete this topic Procedures Procedure Name Priority Date/Time Associated Diagnosis Comments MG MAMMO DIGITAL SCREENING W ANDRE BILAT Routine 06/09/2024 1:32 PM EDT Personal history of breast cancer LIPID PANEL Routine 07/04/2022 HM HPV Routine 06/10/2021 from Last 3 Months or Most Recently Relevant to Health Maintenance Results * MG Mammo Digital Screening w Andre bilat (06/09/2024 1:32 PM EDT) Anatomical Region Laterality Modality Breast Bilateral Mammography 06/10/2024 8:53 AM EDT Impressions 06/10/2024 9:02 AM EDT No mammographic evidence for malignancy in the right breast. BI-RADS CATEGORY: 1 - NEGATIVE RECOMMENDATION: Screening right mammogram is recommended in 1 year. Mammo Location: [facility], [address] [place] [address], [id number], . -------- FINAL REPORT -------- Dictated By: Milagros Noriega Dictated Date: 06/10/2024 08:53 ET Assigned Physician: Milagros Noriega Reviewed and Electronically Signed By: Milagros Noriega Signed Date: 06/10/2024 09:02 ET Workstation ID: [id number] Transcribed By: Self Edit Transcribed Date: 06/10/2024 08:53 ET Narrative 06/10/2024 9:02 AM EDT Right breast screening mammogram. CLINICAL: 48 years old, Female, routine annual exam. ??Patient is a history of left mastectomy for invasive cancer and right mastopexy in February 2024. COMPARISON: Prior mammograms, latest from 10/10/2022. ?? TECHNIQUE: Right breast MLO and CC views were obtained digitally with 2-D C views and 3-D mammogram (digital breast tomosynthesis). Computer-aided detection was utilized in evaluation of this exam (CAD). FINDINGS: There is no evidence of suspicious mass or architectural distortion. ??No worrisome calcifications are evident. ??There has been no significant change from prior exam(s). ?? BREAST DENSITY: C - The breasts are heterogeneously dense which may obscure small masses. Procedure Note Milagros Noriega MD - 06/10/2024 Right breast screening mammogram. CLINICAL: 48 years old, Female, routine annual exam. Patient is a historyof left mastectomy for invasive cancer and right mastopexy in February2024. COMPARISON: Prior mammograms, latest from 10/10/2022. TECHNIQUE: Right breast MLO and CC views were obtained digitally with 2-DC views and 3-D mammogram (digital breast tomosynthesis). Computer-aideddetection was utilized in evaluation of this exam (CAD). FINDINGS: There is no evidence of suspicious mass or architectural distortion. Noworrisome calcifications are evident. There has been no significantchange from prior exam(s). BREAST DENSITY: C - The breasts are heterogeneously dense which mayobscure small masses. IMPRESSION: No mammographic evidence for malignancy in the right breast. BI-RADS CATEGORY: 1 - NEGATIVE RECOMMENDATION: Screening right mammogram is recommended in 1 year. Mammo Location: [facility], [address] [place] [address], [address], . -------- FINAL REPORT -------- Dictated By: Milagros Noriega Dictated Date: 06/10/2024 08:53 ET Assigned Physician: Milagros Noriega Reviewed and Electronically Signed By: Milagros Noriega Signed Date: 06/10/2024 09:02 ET Workstation ID: [id number] Transcribed By: Self Edit Transcribed Date: 06/10/2024 08:53 ET Nely Tierney MD IMG BI PROCEDURES Final R esult * (ABNORMAL) Lipid panel (07/04/2022) LDL/HDL Ratio 3 0 - 4 Triglycerides 58 0 - 150 mg/dL Cholesterol 206(A) 0 - 200 mg/dL HDL 69 >=40 mg/dL LDL Cholesterol 126(A) 0 - 100 mg/dL Blood Venous blood specimen / Unknown Historical Provider LAB BLOOD ORDERABLES Shantel l Result * Cervical Cancer Screening: HPV (06/10/2021) Pathologist [facility] Cervical Cancer Screening: HPV abstracted, negative Historical Provider HEALTH MAINTENANCE Final Result from Last 3 Months or Most Recently Relevant to Health Maintenance Insurance [employer] [id number] Care Teams Complementary Health Therapists Relationship Specialty Start Date End Date Preet Mack MD [address] [place] [address] Dr Devaughn [place] PCP - General Family Medicine 06/09/24
--- OUTSIDE RECORDS SUMMARY | 2024-06-29 16:15 | XMS_ITS | Clinical Summary ---
Author Organization [facility] Address [address] [place] [address] Care Team Providers Care Boat Loader Name Role Phone Nely Mccloud MD Primary Care Provider [phone] [phone] Allergies Active Allergy Reactions Criticality Noted Date [...] age to complete this topic Care Teams Boat Loader Relationship Specialty Start Date End Date Nely Mccloud MD [address] [place] [id number] PCP - General Internal Medicine 07/29/23
== END 2024-06-29 15:44 | disposition home or self-care (01) ==
PROVIDERS: PCP Family Medicine; Visit Provider Advanced Practice Midwife
DX: Z01.419 Encounter for gynecological examination (general) (routine) without abnormal findings (principal); N94.6 Dysmenorrhea, unspecified; N95.1 Menopausal and female climacteric states; Z85.3 Personal history of malignant neoplasm of breast
CPT/HCPCS: 99386; 99459

== ENCOUNTER 2024-06-29 14:00 | Outpatient (REF) | payer OTHER, SELFPAY ==
--- OUTSIDE RECORDS SUMMARY | 2024-06-29 17:39 | XMS_ITS | Clinical Summary ---
Author Organization [facility] Address [address] [place] [address] Care Team Providers Care Software Tools Developer Name Role Phone Nely Mccloud MD Primary Care Provider [phone] [phone] Allergies Active Allergy Reactions Criticality Noted Date [...] age to complete this topic Care Teams Software Tools Developer Relationship Specialty Start Date End Date Nely Mccloud MD [address] [place] [phone] PCP - General Internal Medicine 07/29/23
--- OUTSIDE RECORDS SUMMARY | 2024-06-29 17:40 | XMS_ITS | Encounter Summary ---
Author Organization [facility] Address [address] [place] [address] Care Team Providers Care Billing Specialist Name Role Phone Nely Mccloud MD Primary Care Provider [phone] [phone] Encounter Details Date Type Department Care Team Description 10/15/2023 Social Work [facility] Oncology Services [address] [place] [address] Tati [place]il[place] [facility] [place] History Tobacco Use [...] on filedocumented in this encounter Care Teams Billing Specialist Relationship Specialty Start Date End Date Nely Mccloud MD [address] [place] [id number] PCP - General Internal Medicine 07/29/23 documented as of this encounter
--- OUTSIDE RECORDS SUMMARY | 2024-06-29 17:40 | XMS_ITS | Clinical Summary ---
Author Organization [facility] [address] [place] [address] [place] [phone] Phone Care Team Providers Care Convertible Power Shovel Operator Name Role Phone Preet Mack MD Primary Care Provider [phone]- [phone] Allergies Active Allergy Reactions Criticality Noted Date [...] AM EDT [facility] [address] [place] [address] Oswaldo Treviño MD Malignant neoplasm of lower-outer quadrant of left breast of female, estrogen receptor positive (CMS/HCC) (Primary Dx) 06/09/2024 1:18 PM EDT - 06/09/2024 11:59 PM EDT Hospital Encounter Radiology Department - [address] [phone] Personal history of breast cancer Discharge Disposition: Home or Self Care 04/13/2024 Telephone [facility] Hematology Oncology [address] [place] [phone] Alem Cho MD Referral 04/01/2024 11:30 AM EST Office Visit [facility] Hematology Oncology [address] [place] [phone] Alem Cho MD Malignant neoplasm of lower-outer [...] Description 09/30/2024 9:30 AM EDT Office Visit [facility] Hematology Oncology [address] [place] [address] Alem Vargas MD [address] [place] [phone] 12/08/2024 8:00 AM EDT Office Visit [facility] [address] [place] [phone] Oswaldo Treviño MD 271 [facility] [address] [place] [address] Health Maintenance Due Date Last Done Comments [...] is recommended in 1 year. Mammo Location: [facility], [address] [place] [address], [phone], . -------- FINAL REPORT -------- Dictated By: Milagros Noriega Dictated Date: 06/10/2024 08:53 ET Assigned Physician: Milagros Noriega Reviewed and Electronically Signed By: Milagros Noriega Signed Date: 06/10/2024 09:02 ET Workstation ID: [id number] Transcribed By: Self Edit Transcribed Date: 06/10/2024 [...] is recommended in 1 year. Mammo Location: [facility], [address] [place] [address], [address], . -------- FINAL REPORT -------- Dictated By: Milagros Noriega Dictated Date: 06/10/2024 08:53 ET Assigned Physician: Milagros Noriega Reviewed and Electronically Signed By: Milagros Noriega Signed Date: 06/10/2024 09:02 ET Workstation ID: [id number] Transcribed By: Self Edit Transcribed Date: 06/10/2024 [...] * Cervical Cancer Screening: HPV (06/10/2021) Pathologist [facility] Cervical Cancer Screening: HPV abstracted, negative Historical Provider HEALTH MAINTENANCE Final Result from Last 3 Months or Most Recently Relevant to Health Maintenance Insurance [employer] [id number] Care Teams Convertible Power Shovel Operator Relationship Specialty Start Date End Date Preet Mack MD [address] [place] [address] Dr Devaughn [place] PCP - General Family Medicine 06/09/24
--- OUTSIDE RECORDS SUMMARY | 2024-06-29 17:40 | XMS_ITS | Encounter Summary ---
Author Organization [facility] Address [address] [place] [address] Care Team Providers Care Hoisting Engine Operator Name Role Phone Nely Mccloud MD Primary Care Provider [phone] [phone] Encounter Details Date Type Department Care Team Description 09/18/2023 Social Work [facility] Oncology Services [address] [place] [address] [place]ati Becerril, [facility] [place] Tobacco Use Types Packs/Day Years [...] on filedocumented in this encounter Care Teams Hoisting Engine Operator Relationship Specialty Start Date End Date Nely Mccloud MD [address] [place] [id number] PCP - General Internal Medicine 07/29/23 documented as of this encounter
[2024-07-04 14:54] LABS: HPV Genotype 16 Negative (Negative); HPV Genotype 18 Negative (Negative); HPV High Risk Negative (Negative)
== END 2024-06-29 14:01 | disposition home or self-care (01) ==
LOC: HO.LNP 14:00
PROVIDERS: PCP Family Medicine; Visit Provider Advanced Practice Midwife
DX: Z01.419 Encounter for gynecological examination (general) (routine) without abnormal findings (principal)
CPT/HCPCS: 87626; 88175